=== PATIENT | male | born 1985 | race Caucasian/White ===

== ENCOUNTER 2017-12-18 09:04 | Day surgery (SDC) | payer BC ==
[2017-12-18 10:21] VITALS: BMI 26.1
[2017-12-18] MEDS ORDERED: Propofol 10 mg/ml Inj (20 ML) ONE (12:40)
--- NOTE | 2017-12-18 12:40 | CP.SDSHP ---
Same Day Surgery H & P - History Proposed Procedure: colonoscopy Pre-Op Diagnosis: rectal bleeding - Allergies Allergies: Allergies cat dander Allergy (Verified 12/18/17 10:20) CONGESTION dust Allergy (Uncoded 12/18/17 10:20) CONGESTION - Physical Exam General Appearance: NAD Vital Signs: Vital Signs 12/18/17 10:00 Temperature 97.8 F Pulse Rate 50 L Respiratory 19 Rate Blood Pressure 128/77 O2 Sat by Pulse 98 Oximetry Mental Status: Alert & Oriented x3 Neuro: WNL Heart: WNL Lungs: WNL GI: WNL - {Optional Preform as Required} Abdomen: WNL - Impression Pt. Evaluated Today:Candidate for Anesthesia & Procedure: Yes - Date & Time Date: 12/18/17 Time: 12:40 Short Stay Discharge - Short Stay Discharge Admitting Diagnosis/Reason for Visit: OUTPT INS VERIF Disposition: HOME/ ROUTINE
[2017-12-18] MEDS ORDERED: Lactated Ringer's 1,000 ML IV ONE ×2 (12:44)
[2017-12-18] MEDS ORDERED: Lactated Ringer's 500 ML IV SCH (13:00)
[2017-12-18 15:37] VITALS: TEMP 98
[2017-12-18 15:38] VITALS: RESP 13
[2017-12-18 15:41] VITALS: BP 130/76; PULSE 52; O2SAT 99
== END 2017-12-18 14:45 | disposition home or self-care (01) ==
LOC: C.ENDO 09:04
PROVIDERS: ATTEND Internal Medicine Gastroenterology
DX: K62.5 Hemorrhage of anus and rectum (principal); K64.0 First degree hemorrhoids
CPT/HCPCS: 45380; 88305; J2704; J7120